=== PATIENT | male | born 1975 | race Caucasian/White ===

== ENCOUNTER 2018-04-14 11:03 | Emergency (ER) | payer BC, OTHER ==
[2018-04-14 11:15] VITALS: BP 130/75
[2018-04-14] MEDS ORDERED: Ketorolac 60 MG/2 ML SDV IM ONE (11:51)
--- NOTE | 2018-04-14 12:17 | EDM.PDOC ---
ED HPI GENERAL MEDICAL PROBLEM - General Chief Complaint: Upper Extremity Injury/Pain Stated Complaint: FALL AT WORK Time Seen by Provider: 04/14/18 11:45 Source of Information: Reports: Patient History Limitations: Reports: No Limitations - History of Present Illness INITIAL COMMENTS - FREE TEXT/NARRATIVE: Paras is a 43 yo male who presents to the ED with concerns of right wrist pain. States he was at work and was up on a shelf when he slipped and fell about 4 feet. States he had his arm outstretched to try and break his fall. States he didn't hurt any other parts of his body. No loss of consciousness. No head trauma. Only complaint is right wrist pain. Onset: Today Location: Reports: Upper Extremity, Right Right Wrist Pain Score (Numeric/FACES): 10 - Related Data Allergies Allergy/AdvReac Type Severity Reaction Status Date / Time No Known Allergies Allergy Verified 04/14/18 11:16 Home Meds: Home Meds Simvastatin [Zocor] 40 mg PO BEDTIME 04/14/18 [History] Ubidecarenone [Co Q-10] 200 mg PO DAILY 04/14/18 [History] diphenhydrAMINE [Benadryl] 50 mg PO BEDTIME 04/14/18 [History] Past Medical History HEENT History: Reports: Impaired Vision Cardiovascular History: Reports: High Cholesterol Musculoskeletal History: Reports: Back Pain, Chronic Endocrine/Metabolic History: Reports: Obesity/BMI 30+ - Past Surgical History HEENT Surgical History: Reports: Naso-Sinus Surgery, Tonsillectomy, Other (See Below) Other HEENT Surgeries/Procedures: UVULA SURGERY Social & Family History - Tobacco Use Smoking Status *Q: Never Smoker - Caffeine Use Caffeine Use: Reports: Coffee - Recreational Drug Use Recreational Drug Use: No Review of Systems - Review of Systems Review Of Systems: ROS reveals no pertinent complaints other than HPI. Constitutional: Reports: No Symptoms Musculoskeletal: Reports: Arm Pain (right wrist pain), Joint Pain (wrist), Joint Swelling Neurological: Reports: No Symptoms Psychiatric: Reports: No Symptoms ED EXAM, GENERAL - Physical Exam Exam: See Below Exam Limited By: No Limitations General Appearance: Alert, No Apparent Distress Extremities: Normal Capillary Refill, Joint Swelling (swelling over right distal radius. ), Limited Range of Motion (unable to demonstrate wrist flexion or extension d/t discomfort. ) Neurological: Alert, Oriented, Normal Cognition, No Motor/Sensory Deficits Psychiatric: Normal Affect, Normal Mood Skin Exam: Warm, Dry, Intact, Normal Color, No Rash ED TRAUMA EXTREMITY PROCEDURES - Splinting Right Upper Extremity Pre-Procedure NV Status: Normal Post-Procedure NV Status: Normal Splint Material: Fiberglass Splint Design: Sugar Tong Applied & Form Fitted By: Provider Provider Post-Splint Application NV Check: NV Status Normal, Good Position Complications: No Course - Vital Signs Last Recorded V/S: Last Vital Signs Temp 97.9 F 04/14/18 11:08 Pulse 76 04/14/18 11:08 Resp 16 04/14/18 11:08 BP 130/75 04/14/18 11:08 Pulse Ox 95 04/14/18 11:08 - Orders/Labs/Meds Orders: Active Orders 24 hr Category Date Time Status Wrist Comp Min 3V Rt [CR] Stat Exams 04/14/18 11:16 Taken Meds: Medications Discontinued Medications Generic Name Dose Route Start Last Admin Trade Name Freq PRN Reason Stop Dose Admin Ketorolac Tromethamine 60 mg 04/14/18 11:51 04/14/18 11:56 Toradol IM 04/14/18 11:52 60 mg ONETIME ONE Administration Departure - Departure Time of Disposition: 12:13 Disposition: Home, Self-Care 01 Clinical Impression: Closed fracture of radius Qualifiers: Encounter type: initial encounter Radius location: distal Fracture morphology: unspecified fracture morphology Laterality: right Qualified Code(s): S52.501A - Unspecified fracture of the lower end of right radius, initial encounter for closed fracture - Discharge Information Instructions: Cast or Splint Care, Adult, Radial Fracture Referrals: Govind Romero MD [Primary Care Provider] - Forms: ED Department Discharge Additional Instructions: 1) Avalon 5/325 - 1 tablet every 6 hours as needed for pain 2) Recommend alternating ibuprofen for discomfort. 3) Keep arm elevated to help with swelling when laying down. 4) Do not removed splint, recommend wrapping in saran wrap for showering. Do not get splint wet. 5) If splint feels to tight or capillary refill is delayed, as shown, recommend returning for reevaluation 6) Appointment scheduled for cast placement with Dr. Romero in 1 week. 7) Call if any questions or concerns, [phone] - Problem List & Annotations (1) Closed fracture of radius SNOMED Code(s): 276141545 Code(s): S52.90XA - UNSP FRACTURE OF UNSP FOREARM, INIT FOR CLOS FX Status : Acute Current Visit: Yes Qualifiers: Encounter type: initial encounter Radius location: distal Fracture morphology: unspecified fracture morphology Laterality: right Qualified Code (s): S52.501A - Unspecified fracture of the lower end of right radius, initial encounter for closed fracture - My Orders Last 24 Hours: My Active Orders 04/14/18 11:16 Wrist Comp Min 3V Rt [CR] Stat - Assessment/Plan Last 24 Hours: My Active Orders 04/14/18 11:16 Wrist Comp Min 3V Rt [CR] Stat Plan: Please see additional instructions.
== END 2018-04-14 12:25 | disposition home or self-care (01) ==
LOC: CC.ED 11:03
DX: S52.501A Unspecified fracture of the lower end of right radius, initial encounter for closed fracture (principal); E78.00 Pure hypercholesterolemia, unspecified; Z79.899 Other long term (current) drug therapy; W17.89XA Other fall from one level to another, initial encounter; Y99.0 Civilian activity done for income or pay
CPT/HCPCS: 29125; 73110; 96372; 99283; J1885

== ENCOUNTER → 2021-04-14 | Day surgery (SDC) | payer BC ==
[~2021-04-14] MED LIST: Flumazenil 0.1 MG/ML 10 ML MDV ONE; Ketamine 200 MG/20 ML MDV ONE; Lactated Ringers 1,000 ML IV SCH; Midazolam 1 MG/ML 2 ML SDV ONE; Propofol 200 MG/20 ML SDV ONE; fentaNYL 100 MCG/2 ML SDV ONE
[2021-04-14 12:37] VITALS: BP 132/87; PULSE 67
== END ==
LOC: CC.SDS 09:36
PROVIDERS: ATTEND Family Medicine
DX: K63.5 Polyp of colon (principal); K62.1 Rectal polyp; K64.8 Other hemorrhoids; K59.00 Constipation, unspecified; F32.A Depression, unspecified; E78.5 Hyperlipidemia, unspecified; R05.9 Cough, unspecified; E66.01 Morbid (severe) obesity due to excess calories; G89.29 Other chronic pain; Z79.899 Other long term (current) drug therapy; Z98.890 Other specified postprocedural states; Z68.41 Body mass index [BMI] 40.0-44.9, adult
CPT/HCPCS: J2250; J2704; J3010; J7120

== ENCOUNTER 2024-08-05 13:46 | Emergency (ER) | payer OTHER, BC ==
[2024-08-05] MEDS ORDERED: Lidocaine 1% 30 ML SDV INJECT ONE (13:50)
[2024-08-05] MEDS: Lidocaine 1% with EPINEPHrine 1:100,000 20 ML MDV INJECT ONE (14:00)
[2024-08-05 14:04] VITALS: BP 134/89; PULSE 84
[2024-08-05] MEDS: Bacitracin/Neomycin/Polymyxin B Oint 0.9 GM U/D Packet TOP ONE (14:25)
== END 2024-08-05 14:35 | disposition home or self-care (01) ==
LOC: CC.ED 13:46
DX: S81.811A Laceration without foreign body, right lower leg, initial encounter (principal); E78.00 Pure hypercholesterolemia, unspecified; Z79.899 Other long term (current) drug therapy; W26.8XXA Contact with other sharp object(s), not elsewhere classified, initial encounter; Y93.89 Activity, other specified
CPT/HCPCS: 12002; 12032; 99282; 99283; A9270-GY; J2004